=== PATIENT | male | born 1950 | race Caucasian/White ===

== ENCOUNTER → 2016-12-18 | Outpatient (CLI) | payer BC | LOC: MW.CHUR 07:40 | PROVIDERS: ATTEND Urology | DX: N42.9 Disorder of prostate, unspecified (principal) | CPT/HCPCS: 36415; 84153 ==

== ENCOUNTER → 2017-02-26 | Outpatient (CLI) | payer BC, MEDICARE ==
--- NOTE | 2017-02-27 10:42 | CR ---
EXAMINATION: Double contrast barium esophagram HISTORY: Epigastric pain COMPARISON: None TECHNIQUE: Standard double contrast barium was cavagram was performed. FINDINGS: Patient swallowed barium without difficulty. Mild tertiary waves were noted. No filling de fect or ulceration. No diverticulum. There is a small hiatal hernia which slightly enlarged with Nava murphy demonstrated mild gastroesophageal reflux. There is a resulting moderate Schatzki's ring. IMPRESSION: 1. Small hiatal hernia with a moderate ring resulting in narrowing of the distal esophagus. 2. Mild presbyesophagus and mild gastroesophageal reflux.
== END ==
LOC: MW.DI 09:00
PROVIDERS: ATTEND Student in an Organized Health Care Education/Training Program
DX: R10.13 Epigastric pain (principal); R13.10 Dysphagia, unspecified; K44.9 Diaphragmatic hernia without obstruction or gangrene; K22.8 Other specified diseases of esophagus; K21.9 Gastro-esophageal reflux disease without esophagitis
CPT/HCPCS: 74220; 74220-26

== ENCOUNTER 2019-08-21 10:12 | Emergency (ER) | payer MEDICARE, OTHER ==
[2019-08-21] MEDS ORDERED: Sodium Chloride 0.9% 10 ML Syringe FLUSH PRN (10:14)
[2019-08-21] MEDS ORDERED: Aspirin 81 MG Tab.Chew PO ONE (10:14)
[2019-08-21] MEDS ORDERED: Sodium Chloride 0.9% 2.5 ML Syringe FLUSH PRN (10:14)
[2019-08-21] MEDS ORDERED: Sodium Chloride 0.9% 1,000 ML IV ONE (10:14)
[2019-08-21] MEDS ORDERED: Nitroglycerin 0.4 MG Tab.SL SL PRN (10:17)
--- NOTE | 2019-08-21 10:17 | EDM.PDOC ---
ED HPI GENERAL MEDICAL PROBLEM - General Chief Complaint: Chest Pain Stated Complaint: CHEST PAIN Time Seen by Provider: 08/21/19 10:15 Source of Information: Reports: Patient History Limitations: Reports: No Limitations - History of Present Illness INITIAL COMMENTS - FREE TEXT/NARRATIVE: HISTORY AND PHYSICAL: History of present illness: Patient is a 69-year-old male presents to the ED with complaint of chest pain 2 hours. He reports some pain into his left arm and feeling some nausea but denies associated shortness of breath, diaphoresis, or jaw pain. He denies any injury or trauma, cough, fevers, chills, abdominal pain. He states he has a history of bradycardia and had a full negative cardiac work up about 1 year ago at [facility]. He denies denies hypertension, hyperlipidemia, diabetes. He denies smoking or alcohol history. Has no significant past medical or surgical history. Review of systems: As per history of present illness and below otherwise all systems reviewed and negative. Past medical history: As per history of present illness and as reviewed below otherwise noncontributory. Surgical history: As per history of present illness and as reviewed below otherwise noncontributory. Social history: No reported history of drug or alcohol abuse. Family history: As per history of present illness and as reviewed below otherwise noncontributory. Physical exam: General: Patient sitting comfortably in no acute distress and nontoxic appearing HEENT: Atraumatic, normocephalic, pupils reactive, negative for conjunctival pallor or scleral icterus, mucous membranes moist, throat clear, neck supple, nontender, trachea midline. No meningeal signs. Lungs: Clear to auscultation, breath sounds equal bilaterally, chest nontender. Heart: S1S2, regular, negative for clicks, rubs, or overt murmur. Abdomen: Soft, nondistended, nontender. Negative for masses or hepatosplenomegaly. Negative for costovertebral tenderness. No rigidity, rebound , guarding. Pelvis: Stable nontender. Genitourinary: Deferred. Rectal: Deferred. Extremities: Atraumatic, negative for cords or calf pain. Neurovascular unremarkable. Neuro: Awake, alert, oriented. Cranial nerves II through XII unremarkable. Cerebellum unremarkable. Motor and sensory unremarkable throughout. Exam nonfocal. Notes: Patient states his pain is 0 at this time and he has having no other symptoms including shortness of breath or dizziness. Rate has been ranging from 36-46 and he tells me that this is normal for him and has had a workup for this as stated above. Discussed with patient that I would like to admit him for observation and rule out ACS. Patient declines at this time and understands my concerns and risks of this including heart attack or . Diagnostics: CBC, CMP, troponin, PT/INR, EKG, chest x-ray Therapeutics: 1L NS IV 324mg Aspirin chewed Sublingual nitro Prescriptions: Impression: Chest pain Plan: Follow-up with primary care provider and cardiology as discussed End ED as needed as discussed Definitive disposition and diagnosis as appropriate pending reevaluation and review of above. Chest Pain Score (Numeric/FACES): 6 - Related Data Allergies Allergy/AdvReac Type Severity Reaction Status Date / Time No Known Allergies Allergy Verified 08/21/19 10:21 Home Meds: Home Meds Omeprazole Magnesium [Prilosec Otc] 20 mg PO DAILY 08/21/19 [History] ED ROS GENERAL - Review of Systems Review Of Systems: ROS reveals no pertinent complaints other than HPI. ED EXAM, GENERAL - Physical Exam Exam: See Below (see dictation) Course - Vital Signs Last Recorded V/S: Last Vital Signs Temp 97.2 F 08/21/19 10:15 Pulse 59 L 08/21/19 10:38 Resp 16 08/21/19 10:15 BP 159/90 H 08/21/19 10:38 Pulse Ox 100 08/21/19 10:15 - Orders/Labs/Meds Orders: Active Orders 24 hr Category Date Time Status Cardiac Monitoring [RC] . DIRECTED Care 08/21/19 10:14 Active EKG Documentation Completion [RC] STAT Care 08/21/19 10:14 Active Nitroglycerin [Nitrostat] Med 08/21/19 10:17 Active 0.4 mg SL Q5M PRN Sodium Chloride 0.9% [Normal Saline] 1,000 ml Med 08/21/19 10:14 Active IV BOLUS Sodium Chloride 0.9% [Saline Flush] Med 08/21/19 10:14 Active 10 ml FLUSH ASDIRECTED PRN Sodium Chloride 0.9% [Saline Flush] Med 08/21/19 10:14 Active 2.5 ml FLUSH ASDIRECTED PRN Saline Lock Insert [OM.PC] Stat Oth 08/21/19 10:14 Ordered Medication Orders Sodium Chloride (Normal Saline) 1,000 mls @ 999 mls/hr IV BOLUS ONE Stop: 08/21/19 11:14 Last Admin: 08/21/19 10:22 Dose: 999 mls/hr Nitroglycerin (Nitrostat) 0.4 mg SL Q5M PRN PRN Reason: Chest Pain Last Admin: 08/21/19 10:31 Dose: 0.4 mg Sodium Chloride (Saline Flush) 10 ml FLUSH ASDIRECTED PRN PRN Reason: Keep Vein Open Sodium Chloride (Saline Flush) 2.5 ml FLUSH ASDIRECTED PRN PRN Reason: Keep Vein Open Labs: Laboratory Tests 08/21/19 08/21/19 08/21/19 Range/Units 10:15 10:15 10:15 WBC 8.08 (4.0-11.0) K/uL RBC 4.84 (4.50-5.90) M/uL Hgb 15.1 (13.0-17.0) g/dL Hct 43.7 (38.0-50.0) % MCV 90.3 (80.0-98.0) fL MCH 31.2 (27.0-32.0) pg MCHC 34.6 (31.0-37.0) g/dL RDW Std Deviation 43.0 (28.0-62.0) fl RDW Coeff of Analia 13 (11.0-15.0) % Plt Count 310 (150-400) K/uL MPV 8.90 (7.40-12.00) fL Neut % (Auto) 54.3 (48.0-80.0) % Lymph % (Auto) 33.8 (16.0-40.0) % [place] % (Auto) 10.0 (0.0-15.0) % Eos % (Auto) 1.7 (0.0-7.0) % Baso % (Auto) 0.2 (0.0-1.5) % Neut # (Auto) 4.4 (1.4-5.7) K/uL Lymph # (Auto) 2.7 H (0.6-2.4) K/uL [place] # (Auto) 0.8 (0.0-0.8) K/uL Eos # (Auto) 0.1 (0.0-0.7) K/uL Baso # (Auto) 0.0 (0.0-0.1) K/uL Nucleated RBC % 0.0 /100WBC Nucleated RBCs # 0 K/uL INR 1.02 Sodium 142 (136-148) mmol/L Potassium 3.5 (3.5-5.1) mmol/L Chloride 106 (98-107) mmol/L Carbon Dioxide 27.0 (21.0-32.0) mmol/L BUN 14 (7.0-18.0) mg/dL Creatinine 1.3 (0.8-1.3) mg/dL Est Cr Clr Drug Dosing 60.52 mL/min Estimated GFR (MDRD) 55.1 ml/min Glucose 90 (74-106) mg/dL Calcium 8.9 (8.5-10.1) mg/dL Total Bilirubin 0.6 (0.2-1.0) mg/dL AST 18 (15-37) IU/L ALT 38 (14-63) IU/L Alkaline Phosphatase 82 (46-116) U/L Troponin I < 0.050 (0.000-0.056) ng/mL Total Protein 8.5 H (6.4-8.2) g/dL Albumin 3.9 (3.4-5.0) g/dL Globulin 4.6 H (2.6-4.0) g/dL Albumin/Globulin Ratio 0.9 (0.9-1.6) Meds: Medications Generic Name Dose Route Start Last Admin Trade Name Freq PRN Reason Stop Dose Admin Sodium Chloride 1,000 mls @ 999 mls/hr 08/21/19 10:14 08/21/19 10:22 Normal Saline IV 08/21/19 11:14 999 mls/hr BOLUS ONE Administration Nitroglycerin 0.4 mg 08/21/19 10:17 08/21/19 10:31 Nitrostat SL 0.4 mg Q5M PRN Administration Chest Pain Sodium Chloride 10 ml 08/21/19 10:14 Saline Flush FLUSH ASDIRECTED PRN Keep Vein Open Sodium Chloride 2.5 ml 08/21/19 10:14 Saline Flush FLUSH ASDIRECTED PRN Keep Vein Open Discontinued Medications Generic Name Dose Route Start Last Admin Trade Name Freq PRN Reason Stop Dose Admin Aspirin 324 mg 08/21/19 10:14 08/21/19 10:22 Aspirin PO 08/21/19 10:15 324 mg ONETIME ONE Administration Departure - Departure Time of Disposition: 11:05 Disposition: Home, Self-Care 01 Condition: Good Clinical Impression: Chest pain Forms: ED Department Discharge Additional Instructions: The following information is given to patients seen in the emergency department who are being discharged to home. This information is to outline your options for follow-up care. We provide all patients seen in our emergency department with a follow-up referral. The need for follow-up, as well as the timing and circumstances, are variable depending upon the specifics of your emergency department visit. If you don't have a primary care physician on staff, we will provide you with a referral. We always advise you to contact your personal physician following an emergency department visit to inform them of the circumstance of the visit and for follow-up with them and/or the need for any referrals to a consulting specialist. The emergency department will also refer you to a specialist when appropriate. This referral assures that you have the opportunity for follow-up care with a specialist. All of these measure are taken in an effort to provide you with optimal care, which includes your follow-up. Under all circumstances we always encourage you to contact your private physician who remains a resource for coordinating your care. When calling for follow-up care, please make the office aware that this follow-up is from your recent emergency room visit. If for any reason you are refused follow-up, please contact the [facility] Emergency Department at and asked to speak to the emergency department charge nurse. [facility] [address] [place] [address] [id number] [address] Follow-up with primary care provider and cardiology as discussed End ED as needed as discussed - My Orders Last 24 Hours: My Active Orders 08/21/19 10:14 Cardiac Monitoring [RC] . DIRECTED EKG Documentation Completion [RC] STAT Sodium Chloride 0.9% [Normal Saline] 1,000 ml IV BOLUS Sodium Chloride 0.9% [Saline Flush] 10 ml FLUSH ASDIRECTED PRN Sodium Chloride 0.9% [Saline Flush] 2.5 ml FLUSH ASDIRECTED PRN Saline Lock Insert [OM.PC] Stat 08/21/19 10:17 Nitroglycerin [Nitrostat] 0.4 mg SL Q5M PRN - Assessment/Plan Last 24 Hours: My Active Orders 08/21/19 10:14 Cardiac Monitoring [RC] . DIRECTED EKG Documentation Completion [RC] STAT Sodium Chloride 0.9% [Normal Saline] 1,000 ml IV BOLUS Sodium Chloride 0.9% [Saline Flush] 10 ml FLUSH ASDIRECTED PRN Sodium Chloride 0.9% [Saline Flush] 2.5 ml FLUSH ASDIRECTED PRN Saline Lock Insert [OM.PC] Stat 08/21/19 10:17 Nitroglycerin [Nitrostat] 0.4 mg SL Q5M PRN
--- NOTE | 2019-08-21 10:43 | CR ---
Indication: Chest pain. Technique: A single AP portable view of the chest was obtained. Comparison: None Findings: The heart is normal in size. The lungs are clear. No infiltrate, pleural effusion, or pneumothorax is identified. Impression: No acute cardiopulmonary process. Dictated by Sirena Baez MD @ Aug 21 2019 10:41AM Signed by Dr. Sirena Baez @ Aug 21 2019 10:41AM
[2019-08-21 10:57] LABS: BLOOD UREA NITROGEN,BUN 14 mg/dL (7.0-18.0); CHLORIDE,CL 106 mmol/L (98-107); GLUCOSE RANDOM 90 mg/dL (74-106); POTASSIUM,K 3.5 mmol/L (3.5-5.1); SODIUM,NA 142 mmol/L (136-148)
== END 2019-08-21 11:20 | disposition home or self-care (01) ==
LOC: MW.ED 10:12
DX: R07.9 Chest pain, unspecified (principal)
CPT/HCPCS: 36415; 71045; 80053; 84484; 85025; 85610; 93005; 96360; 99285; A9270; J7040; 99283

== ENCOUNTER 2019-08-21 21:27 | Emergency (ER) | payer MEDICARE, OTHER ==
[2019-08-21] MEDS ORDERED: Sodium Chloride 0.9% 1,000 ML IV ONE (21:29)
[2019-08-21] MEDS ORDERED: Sodium Chloride 0.9% 10 ML Syringe FLUSH PRN (21:29)
[2019-08-21] MEDS ORDERED: Sodium Chloride 0.9% 2.5 ML Syringe FLUSH PRN (21:29)
--- NOTE | 2019-08-21 21:30 | EDM.PDOC ---
ED HPI GENERAL MEDICAL PROBLEM - General Chief Complaint: Chest Pain Stated Complaint: CHEST PAINS Time Seen by Provider: 08/21/19 21:30 Source of Information: Reports: Patient History Limitations: Reports: No Limitations - History of Present Illness INITIAL COMMENTS - FREE TEXT/NARRATIVE: HISTORY AND PHYSICAL: History of present illness: Patient is a 69-year-old male presents to the ED with complaint of chest pain. Patient was seen this morning by me for this chest pain, work up was unremarkable and patient was encouraged to be admitted which he declined. He states he has been having pain on and off throughout the day and having some pain radiate to his back. He states he currently does not having any pain. He denies nausea, vomiting, diaphoresis, shortness of breath, abdominal pain. He takes prilosec for heartburn. He does have a history of bradycardia and has had a full negative work up for this 1 year ago. Patient had received aspirin 325mg chewed this morning and states he also took some aspirin this afternoon for a headache. No aspirin given at this visit. Review of systems: As per history of present illness and below otherwise all systems reviewed and negative. Past medical history: As per history of present illness and as reviewed below otherwise noncontributory. Surgical history: As per history of present illness and as reviewed below otherwise noncontributory. Social history: No reported history of drug or alcohol abuse. Family history: As per history of present illness and as reviewed below otherwise noncontributory. Physical exam: General: Patient sitting comfortably in no acute distress and nontoxic appearing HEENT: Atraumatic, normocephalic, pupils reactive, negative for conjunctival pallor or scleral icterus, mucous membranes moist, throat clear, neck supple, nontender, trachea midline. No meningeal signs. Lungs: Clear to auscultation, breath sounds equal bilaterally, chest nontender. Heart: S1S2, regular, negative for clicks, rubs, or overt murmur. Abdomen: Soft, nondistended, nontender. Negative for masses or hepatosplenomegaly. Negative for costovertebral tenderness. No rigidity, rebound , guarding. Pelvis: Stable nontender. Genitourinary: Deferred. Rectal: Deferred. Extremities: Atraumatic, negative for cords or calf pain. Neurovascular unremarkable. Neuro: Awake, alert, oriented. Cranial nerves II through XII unremarkable. Cerebellum unremarkable. Motor and sensory unremarkable throughout. Exam nonfocal. Notes: Patient developed chest pain shortly after arrival, nitro given. Chest pain resolved and blood pressure 130s/90s. Diagnostics: CMP, troponin, EKG Therapeutics: 1L NS IV Nitro sublingual Prescriptions: Impression: Chest pain r/o ACS Plan: Discussed with Dr. Boles, ER physician, at [facility]. Patient has been accepted for transfer. Definitive disposition and diagnosis as appropriate pending reevaluation and review of above. - Related Data Allergies Allergy/AdvReac Type Severity Reaction Status Date / Time No Known Allergies Allergy Verified 08/21/19 21:36 Home Meds: Home Meds Omeprazole Magnesium [Prilosec Otc] 20 mg PO DAILY 08/21/19 [History] Past Medical History - Past Health History Medical/Surgical History: Denies Medical/Surgical History Social & Family History - Family History Family Medical History: Noncontributory ED ROS GENERAL - Review of Systems Review Of Systems: ROS reveals no pertinent complaints other than HPI. ED EXAM, GENERAL - Physical Exam Exam: See Below (see dictation) Course - Vital Signs Last Recorded V/S: Last Vital Signs Temp 97.7 F 08/21/19 23:00 Pulse 41 L 08/21/19 23:00 Resp 16 08/21/19 23:00 BP 152/67 H 08/21/19 23:00 Pulse Ox 99 08/21/19 23:00 - Orders/Labs/Meds Labs: Laboratory Tests 08/21/19 Range/Units 21:35 Sodium 143 (136-148) mmol/L Potassium 3.9 (3.5-5.1) mmol/L Chloride 107 (98-107) mmol/L Carbon Dioxide 25.1 (21.0-32.0) mmol/L BUN 14 (7.0-18.0) mg/dL Creatinine 1.3 (0.8-1.3) mg/dL Est Cr Clr Drug Dosing 60.52 mL/min Estimated GFR (MDRD) 55.1 ml/min Glucose 114 H (74-106) mg/dL Calcium 8.6 (8.5-10.1) mg/dL Total Bilirubin 0.4 (0.2-1.0) mg/dL AST 16 (15-37) IU/L ALT 35 (14-63) IU/L Alkaline Phosphatase 84 (46-116) U/L Troponin I 0.073 H* (0.000-0.056) ng/mL Total Protein 7.9 (6.4-8.2) g/dL Albumin 3.7 (3.4-5.0) g/dL Globulin 4.2 H (2.6-4.0) g/dL Albumin/Globulin Ratio 0.9 (0.9-1.6) Meds: Medications Discontinued Medications Generic Name Dose Route Start Last Admin Trade Name Freq PRN Reason Stop Dose Admin Enoxaparin Sodium 90 mg 08/21/19 22:23 08/21/19 22:31 Lovenox SUBCUT 08/21/19 22:24 90 mg ONETIME ONE Administration Sodium Chloride 1,000 mls @ 999 mls/hr 08/21/19 21:29 08/21/19 21:45 Normal Saline IV 08/21/19 22:29 999 mls/hr BOLUS ONE Administration Nitroglycerin 0.4 mg 08/21/19 21:48 08/21/19 22:12 Nitrostat SL 0.4 mg Q5M PRN Administration Chest Pain Nitroglycerin 1 gm 08/21/19 22:14 08/21/19 22:21 Nitro-Bid 2% TOP 08/21/19 22:15 1 gm ONETIME ONE Administration Sodium Chloride 10 ml 08/21/19 21:29 08/21/19 21:45 Saline Flush FLUSH 10 ml ASDIRECTED PRN Administration Keep Vein Open Sodium Chloride 2.5 ml 08/21/19 21:29 08/21/19 21:45 Saline Flush FLUSH 2.5 ml ASDIRECTED PRN Administration Keep Vein Open Departure - Departure Time of Disposition: 22:07 Disposition: DC/Tfer to Acute Hospital 02 Reason for Transfer *Q: Primary PCI Indicated Condition: Good Clinical Impression: Chest pain Referrals: PCP,None [Primary Care Provider] - Forms: ED Department Discharge
[2019-08-21] MEDS: Nitroglycerin 0.4 MG Tab.SL SL PRN ×3 (21:57→22:12)
[2019-08-21 22:08] LABS: CARBON DIOXIDE,CO2 25.1 mmol/L (21.0-32.0); POTASSIUM,K 3.9 mmol/L (3.5-5.1)
[2019-08-21] MEDS ORDERED: Nitroglycerin 2% Oint 1 GM UD Packet TOP ONE (22:14)
[2019-08-21] MEDS ORDERED: Enoxaparin 100 MG/1 ML Syringe SUBCUT ONE (22:23)
== END 2019-08-21 23:10 ==
LOC: MW.ED 21:27
DX: R07.9 Chest pain, unspecified (principal)
CPT/HCPCS: 36415; 80053; 84484; 99285; A9270; J1650; J7040

== ENCOUNTER 2019-09-08 09:16 | Emergency (ER) | payer MEDICARE, OTHER ==
[2019-09-08] MEDS ORDERED: Diphtheria,Pertussis(Acell),Tetanus Vaccine 0.5 ML Syringe IM ONE (09:35)
[2019-09-08] MEDS ORDERED: Cephalexin 500 MG Cap PO ONE (09:36)
--- NOTE | 2019-09-08 09:37 | EDM.PDOC ---
ED HPI GENERAL MEDICAL PROBLEM - General Chief Complaint: Laceration Stated Complaint: RIGHT ARM INJURY Time Seen by Provider: 09/08/19 09:36 Source of Information: Reports: Patient - History of Present Illness INITIAL COMMENTS - FREE TEXT/NARRATIVE: HISTORY AND PHYSICAL: History of present illness: [Patient was working under the hilton of his car, the hilton fell on his right forearm and the latched he did have to slide his arm down to release the latched which caused a superficial laceration approximately 3 inches in length deeper tissues are not involved wound is non-gaping is more of a superficial tear however it does involve the top half of the dermis he is on blood thinner so there is large surrounding bruise I will put in some sutures for closure No fever nausea vomiting chills sweats no other injury ] Review of systems: As per history of present illness and below otherwise all systems reviewed and negative. Past medical history: As per history of present illness and as reviewed below otherwise noncontributory. Surgical history: As per history of present illness and as reviewed below otherwise noncontributory. Social history: No reported history of drug or alcohol abuse. Family history: As per history of present illness and as reviewed below otherwise noncontributory. Physical exam: HEENT: Atraumatic, normocephalic, pupils reactive, negative for conjunctival pallor or scleral icterus, mucous membranes moist, throat clear, neck supple, nontender, trachea midline. Lungs: Clear to auscultation, breath sounds equal bilaterally, chest nontender. Heart: S1S2, regular, negative for clicks, rubs, or JVD. Abdomen: Soft, nondistended, nontender. Negative for masses or hepatosplenomegaly. Negative for costovertebral tenderness. Pelvis: Stable nontender. Genitourinary: Deferred. Rectal: Deferred. Extremities: Atraumatic, negative for cords or calf pain. Neurovascular unremarkable. Neuro: Awake, alert, oriented. Cranial nerves II through XII unremarkable. Cerebellum unremarkable. Motor and sensory unremarkable throughout. Exam nonfocal. Skin as per history of present illness otherwise unremarkable Diagnostics: [ 2 views right forearm ] Therapeutics: [ tetanus status is updated Keflex 500 by mouth twice a day #20 no refill first dose now EKG #3 4-0 Prolene sutures interrupted Standard wound care instructions Sutures out in 10 days ] Impression: [ laceration 3 inch linear simple Contusion ] Definitive disposition and diagnosis as appropriate pending reevaluation and review of above. right forearm Pain Score (Numeric/FACES): 5 - Related Data Allergies Allergy/AdvReac Type Severity Reaction Status Date / Time No Known Allergies Allergy Verified 08/21/19 21:36 Home Meds: Home Meds Omeprazole Magnesium [Prilosec Otc] 20 mg PO DAILY 08/21/19 [History] Lisinopril 09/08/19 [History] Nitroglycerin [Nitrostat] 09/08/19 [History] Tamsulosin HCl 09/08/19 [History] Ticagrelor [Brilinta] 09/08/19 [History] atorvaSTATin [Lipitor] 09/08/19 [History] Past Medical History - Past Health History Medical/Surgical History: Denies Medical/Surgical History Cardiovascular History: Reports: Stents, Other (See Below) Other Cardiovascular History: bradycardia Gastrointestinal History: Reports: GERD Genitourinary History: Reports: Prostate Disorder - Past Surgical History Cardiovascular Surgical History: Reports: None GI Surgical History: Reports: None Social & Family History - Family History Family Medical History: Noncontributory - Tobacco Use Smoking Status *Q: Never Smoker - Caffeine Use Caffeine Use: Reports: Coffee, Soda - Recreational Drug Use Recreational Drug Use: No ED ROS GENERAL - Review of Systems Review Of Systems: See Below ED EXAM, SKIN/RASH Exam: See Below Course - Vital Signs Last Recorded V/S: Last Vital Signs Temp 96.1 F 09/08/19 09:22 Pulse 70 09/08/19 09:22 Resp 16 09/08/19 09:22 BP 154/78 H 09/08/19 09:22 Pulse Ox 98 09/08/19 09:22 - Orders/Labs/Meds Orders: Active Orders 24 hr Category Date Time Status Vaccines to be Administered [RC] PER UNIT ROUTINE Care 09/08/19 09:35 Active Meds: Medications Discontinued Medications Generic Name Dose Route Start Last Admin Trade Name Armando PRN Reason Stop Dose Admin Cephalexin 500 mg 09/08/19 09:36 09/08/19 09:59 Keflex PO 09/08/19 09:37 500 mg ONETIME ONE Administration Diphtheria/Tetanus/Acell Pertussis 0.5 ml 09/08/19 09:35 09/08/19 09:59 Adacel IM 09/08/19 09:36 0.5 ml .ONCE ONE Administration Lidocaine HCl 5 ml 09/08/19 10:28 Xylocaine-Mpf 1% INJECT 09/08/19 10:29 ONETIME ONE Lidocaine HCl Confirm 09/08/19 10:30 09/08/19 11:10 Xylocaine-Mpf 1% Administered 09/08/19 10:31 Not Given Dose 5 ml .ROUTE .STK-MED ONE Departure - Departure Time of Disposition: 11:21 Disposition: Home, Self-Care 01 Condition: Good Clinical Impression: Laceration, Contusion - Discharge Information Referrals: PCP,Not In Area [Primary Care Provider] - Forms: ED Department Discharge Additional Instructions: Medication as prescribed Return if symptoms persist or worsen Keep wound clean and dry for 48 hours Sutures out in 10 days The following information is given to patients seen in the emergency department who are being discharged to home. This information is to outline your options for follow-up care. We provide all patients seen in our emergency department with a follow-up referral. The need for follow-up, as well as the timing and circumstances, are variable depending upon the specifics of your emergency department visit. If you don't have a primary care physician on staff, we will provide you with a referral. We always advise you to contact your personal physician following an emergency department visit to inform them of the circumstance of the visit and for follow-up with them and/or the need for any referrals to a consulting specialist. The emergency department will also refer you to a specialist when appropriate. This referral assures that you have the opportunity for follow-up care with a specialist. All of these measure are taken in an effort to provide you with optimal care, which includes your follow-up. Under all circumstances we always encourage you to contact your private physician who remains a resource for coordinating your care. When calling for follow-up care, please make the office aware that this follow-up is from your recent emergency room visit. If for any reason you are refused follow-up, please contact the [facility] emergency department at and asked to speak to the emergency department charge nurse. - My Orders Last 24 Hours: My Active Orders 09/08/19 09:35 Vaccines to be Administered [RC] PER UNIT ROUTINE - Assessment/Plan Last 24 Hours: My Active Orders 09/08/19 09:35 Vaccines to be Administered [RC] PER UNIT ROUTINE
--- NOTE | 2019-09-08 10:18 | CR ---
EXAM DATE: 09/08/19 PATIENT'S AGE: 69 Right forearm: Two views of the right forearm were obtained. Comparison: No prior right forearm study. Soft tissue swelling is identified. No discrete fracture or other bony abnormality is appreciated. Impression: 1. Soft tissue swelling. 2. No bony abnormality is identified on right forearm study. Diagnostic code #2 Report Signed by Proxy. MESSI
== END 2019-09-08 11:40 | disposition home or self-care (01) ==
LOC: MW.ED 09:16
DX: S51.811A Laceration without foreign body of right forearm, initial encounter (principal); Z23 Encounter for immunization; K21.9 Gastro-esophageal reflux disease without esophagitis; Z79.899 Other long term (current) drug therapy; W23.0XXA Caught, crushed, jammed, or pinched between moving objects, initial encounter
CPT/HCPCS: 12004; 73090; 90471; 90715; 99283; A9270; J2001